=== PATIENT | male | born 1980 | race Caucasian/White ===

== ENCOUNTER 2016-08-12 15:59 | Emergency (ER) | payer MEDICAID ==
[~2016-08-12] VITALS: Ht 193 cm; Wt 71.5 kg
[2016-08-12 16:00] VITALS: BP 117/68
== END 2016-08-12 17:21 | disposition home or self-care (01) ==
LOC: ED 16:24
DX: L02.415 Cutaneous abscess of right lower limb (principal); F17.210 Nicotine dependence, cigarettes, uncomplicated
CPT/HCPCS: 10060; 99283

== ENCOUNTER 2017-04-23 11:34 | Emergency (ER) | payer MEDICAID ==
[~2017-04-23] VITALS: Ht 193 cm; Wt 70.6 kg
[2017-04-23 11:35] VITALS: BP 107/65
== END 2017-04-23 12:28 | disposition home or self-care (01) ==
LOC: ED 12:22
DX: L73.9 Follicular disorder, unspecified (principal); F17.200 Nicotine dependence, unspecified, uncomplicated; Z88.0 Allergy status to penicillin
CPT/HCPCS: 99283

== ENCOUNTER 2020-10-14 07:46 | Emergency (ER) | payer MEDICAID, OTHER ==
[~2020-10-14] VITALS: Ht 193 cm; Wt 77.1 kg
[2020-10-14 07:48] VITALS: BP 118/65
--- NOTE | 2020-10-14 07:58 | NUR ---
Pt denies having any pain, no sob, no cp, no abdominal pain, no fevers, no cough. Says "I just feel off". Denies dizziness. No n/v/d. VSS. Changed to gown waiting for ERP evaluation.
--- NOTE | 2020-10-14 08:13 | NUR ---
ERP at bedside for evaluation.
--- NOTE | 2020-10-14 08:31 | NUR ---
Pt dc ambulatory in NAD, pt given work note and instruct to f/u with pcp. Pt verbalizes understanding of instruct. VSS.
== END 2020-10-14 08:33 | disposition home or self-care (01) ==
LOC: ED 08:25
DX: B34.9 Viral infection, unspecified (principal); Z20.822 Contact with and (suspected) exposure to COVID-19; R51.9 Headache, unspecified; R53.83 Other fatigue
CPT/HCPCS: 99283; U0003; U0005